=== PATIENT | female | born 1985 | race Caucasian/White ===

== ENCOUNTER 2021-03-27 02:55 | Emergency (ER) | payer SELFPAY ==
[2021-03-27 03:07] VITALS: BP 143/88; PULSE 140; RESP 22; TEMP 36.1; O2SAT 98; BMI 29.9
--- NOTE | 2021-03-27 03:10 | ED_ITS ---
HPI - Skin/Abscess/Foreign Bdy General: Chief complaint: Skin/Abscess/Foreign Body Stated complaint: spider bite to face Time Seen by Provider: 03/27/21 02:57 Source: patient Mode of arrival: ambulatory Limitations: no limitations History of Present Illness: HPI narrative: 35-year-old female states she has had an abscess to right side of her face over the last 2 days. States she initially thought was just a pimple tried pop and it is grown in size. Does have a abscess to the right side of her face with some cellulitis down to her chin. She has had some drainage from it states it is painful to touch has had low-grade fevers she rates her pain a 4 out of 10 denies any worsening improving factors. Associated symptoms: Deny chills, fever(s), nausea or vomiting Review of Systems Const: Denies: fever(s), chills, body aches or change in appetite Eyes: Denies: blurry vision or eye discomfort ENMT: Denies: throat pain or dental pain Card: Denies: chest pain Resp: Denies: dyspnea GI: Denies: abdominal pain, nausea, vomiting or diarrhea : Denies: dysuria Musc: Denies: neck pain or back pain Skin/Breast: Denies: rash Neuro: Denies: headache(s) Psych: Denies: depression [place]/Lymph: Denies: easy bruising All/Imm: Denies: urticaria PFSH ED PFSH: Medical History (Updated 03/27/21 @ 03:14 by Dangelo Christine MD) No pertinent family history Social History (Updated 03/27/21 @ 03:11 by Dangelo Christine MD) Substance/Drug Use: never Physical Exam Const: COMMON NORMALS: no acute distress and patient oriented x3 HENMT: OTHER: 2 cm abscess to right side of the face with cellulitis Eye: COMMON NORMALS: Equal, round and reactive pupils present PUPIL: Yes Equal, round and reactive pupils present Neck/C-Spine: COMMON NORMALS: full ROM Chest: COMMONS NORMALS: normal inspection of the chest Resp: COMMON NORMALS: normal respiratory effort Cardio: RATE: tachycardic GI: INSPECTION: Yes normal to inspection Neuro: COMMON NORMALS: patient oriented x3 Psych: COMMON NORMALS: mental status grossly normal Skin: COMMON NORMALS: no rashes or lesions noted GENERAL SKIN EXAM: no rashes or lesions noted Procedures Abscess I/D Site: face Side (if applicable): right Local Anesthetic: lidocaine 1% Amount of anesthesia used (mL): 5 Irrigation: No Packing used?: none Course Vital Signs: Vital signs: Vital Signs Temperature 96.9 F L 03/27/21 03:07 Pulse Rate 140 H 03/27/21 03:07 Respiratory Rate 22 H 03/27/21 03:07 Blood Pressure 143/88 03/27/21 03:07 Pulse Oximetry 98 03/27/21 03:07 MDM - Skin/Abscess/Foreign Bdy MDM Narrative: Medical decision making narrative: Patient presents with an abscess to the right side of her face abscess was incised and drained we will place her on Bactrim we will prescribe her pain medicine she is to follow-up with PCP and return if worsening she understands agrees plan. Discharge Plan Discharge Patient Disposition: Home Clinical Impression: Abscess Condition: Stable Prescriptions: New Bactrim DS 800-160 mg tablet 1 tab PO BID 10 Days Qty: 20 RF: 0 Naprosyn 500 mg tablet 500 mg PO BID PRN (Reason: pain) Qty: 20 RF: 0 Discharge Orders: Discharge ED (Routine); Ordered 03/27/21 Ordered By: Dangelo Christine Discharge Diet: Advance as tolerated Discharge Activity: Resume usual activity Patient Instructions: Abscess (ED) Coding Level of Care Code ED Military Technology Specialist for Maral Cintron
[2021-03-27] MEDS: HYDROcodone-acetaminophen 5-325 mg Tablet 1 TAB PO (03:18)
[2021-03-27] MEDS: sulfamethoxazole-trimeth DS 160-800 mg Tablet 1 TAB PO (03:18)
== END 2021-03-27 03:34 | disposition home or self-care (01) ==
PROVIDERS: Emergency Provider Emergency Medicine
DX: L02.01 Cutaneous abscess of face (principal)
CPT/HCPCS: 10060; 87070; 87077; 87186; 99283

== ENCOUNTER 2021-05-17 04:28 | Emergency (ER) | payer SELFPAY ==
[2021-05-17 04:37] VITALS: BP 140/97; PULSE 101; RESP 18; TEMP 36.4; O2SAT 100; BMI 29.3
--- NOTE | 2021-05-17 04:50 | XRR_ITS ---
PROCEDURE INFORMATION: Exam: XR Left Elbow Exam date and time: 05/17/2021 4:50 AM Age: 35 years old Clinical indication: Injury or trauma; Fall; Blunt trauma (contusions or hematomas); Elbow; Left; Additional info: Fall elbow pain TECHNIQUE: Imaging protocol: XR Left elbow. Views: 3 or more views. COMPARISON: No relevant prior studies available. FINDINGS: Bones/joints: No acute fracture or malalignment. Joint spaces are maintained. No joint effusion. Soft tissues: Normal. XR/XR elbow LT min 3V* [id number] IMPRESSION: No acute fracture or malalignment.
--- NOTE | 2021-05-17 05:34 | W.ED.FALL ---
HPI - Fall General: Chief Complaint: Fall Stated Complaint: left arm injury Time Seen by Provider: 05/17/21 04:50 History of Present Illness: 35-year-old female who slipped on the ice a day or so ago. She landed on her left lower arm/elbow. She complains of pain with some soft tissue swelling there. She denies hitting her head. She did not take any medication prior to coming. MD complaint: fall Onset (ago): hour(s) (28) Fall from: standing Place fall occurred: home Loss of consciousness: None Prolonged down time: no Context: tripped/slipped Location of injury - extremities: Left: elbow Associated symptoms-after fall: Denies headache(s) Review of Systems Const: Denies: fever(s) Skin/Breast: Denies: rash Neuro: Denies: headache(s) PFS ED PFSH: Medical History (Updated 05/17/21 @ 05:32 by Chin Castaneda DO) No pertinent family history Physical Exam Const: COMMON NORMALS: no acute distress GENERAL APPEARANCE: cooperative HENMT: COMMON NORMALS: normocephalic and atraumatic HEAD & SCALP: normocephalic and atraumatic Eye: COMMON NORMALS: Equal, round and reactive pupils present and EOMs intact bilaterally PUPIL: Yes Equal, round and reactive pupils present Resp: COMMON NORMALS: normal respiratory effort, No use of accessory muscles and clear to auscultation bilaterally AUSCULTATION: clear to auscultation bilaterally Cardio: COMMON NORMALS: regular rate and regular rhythm RATE: regular rate RHYTHM: regular rhythm Extremity: NARRATIVE EXTREMITY EXAM: Exam of the left elbow reveals tenderness along the joint line. There is no deformity. Motion is intact although quite painful. She lacks 10 degrees of extension sensation and capillary refill is normal distally. Neuro: SOCRATES COMA SCALE: document GCS findings Socrates coma scale eye opening: Spontaneous [place] coma scale verbal response: Orientated Socrates coma scale motor response: Obey commands [place] coma scale total score: 15 Course Vital Signs: Vital signs: Vital Signs Temperature 97.5 F L 05/17/21 04:37 Pulse Rate 101 H 05/17/21 04:37 Respiratory Rate 18 05/17/21 04:37 Blood Pressure 140/97 05/17/21 04:37 Pulse Oximetry 100 05/17/21 04:37 MDM - Fall Medical Decision Making X-rays negative. No joint effusion or sail sign. She will be allowed home with anti-inflammatory. Lab Data Radiology Impressions Elbow X-Ray 05/17/21 04:50 IMPRESSION: No acute fracture or malalignment. Discharge Plan Discharge Patient Disposition: Home Clinical Impression: Contusion of elbow, left Condition: Stable Prescriptions: New ketorolac 10 mg tablet 10 mg PO TID PRN (Reason: pain) Qty: 10 0RF Discontinued naproxen [Naprosyn] 500 mg tablet 500 mg PO BID PRN (Reason: pain) Qty: 20 0RF Discharge Orders: Discharge ED (Routine); Ordered 05/17/21 Ordered By: Chin Castaneda Discharge Diet: Usual diet Discharge Activity: Increase activity as tolerated Patient Instructions: Contusion in Adults (ED), Opioid Safety Activity Restrictions/Additional Instructions: Return for worsening swelling despite treatment, worsening pain despite treatment, any other concerning symptoms. Coding Level of Care Code ED Bias Cutting Machine Operator Vertical for Maral Cintron
[2021-05-17] MEDS: oxyCODONE-APAP 5-325 mg Tablet 2 TAB PO (05:57)
== END 2021-05-17 05:47 | disposition home or self-care (01) ==
PROVIDERS: Emergency Provider Emergency Medicine
DX: S50.02XA Contusion of left elbow, initial encounter (principal); W00.0XXA Fall on same level due to ice and snow, initial encounter
CPT/HCPCS: 73080; 99283

== ENCOUNTER 2022-08-15 23:00 | Emergency (ER) | payer SELFPAY ==
[2022-08-15 23:09] VITALS: BP 149/92; PULSE 104; RESP 14; TEMP 36.4; O2SAT 98; BMI 32.3
--- NOTE | 2022-08-15 23:18 | ED_ITS ---
HPI - Weakness General: Chief complaint: Weakness Stated complaint: unknown illness Time Seen by Provider: 08/15/22 23:18 History of Present Illness: 37-year-old female comes in today with general complaints of body stiffness, generalized body aches and pain, and worsening restless leg syndrome. Patient appears nontoxic. Patient admits to being a 1 to 2 pack a day smoker for the last 20 years. Patient appears in no pain at rest. Patient states over the last week she has had increased symptoms of generalized body aches, stiffness, and pain. Patient reports she had similar episode about 1 year ago that resolved on its own. Patient denies any routine medications or chronic use of [id number] medications. Patient does not use any supplements. Patient denies alcohol or drug use. Associated symptoms: Denies chest pain, fever(s), headache(s), nausea or vomiting Review of Systems General: Reports: 10 or more systems reviewed and unremarkable except in HPI and below Const: Reports: body aches and fatigue; Denies: fever(s) Eyes: Denies: change in vision ENMT: Denies: throat pain Card: Denies: chest pain Resp: Reports: other (Becomes out of breath with activity); Denies: dyspnea GI: Denies: nausea, vomiting, diarrhea or constipation : Denies: difficulty voiding Musc: Reports: joint pain and joint stiffness; Denies: joint swelling Skin/Breast: Denies: rash Neuro: Denies: headache(s) Psych: Denies: depression PFS ED PFSH: Medical History (Updated 08/16/22 @ 00:47 by SWETA Canchola) No pertinent family history Social History (Updated 03/27/21 @ 03:11 by Dangelo Christine MD) Substance/Drug Use: never Physical Exam Const: COMMON NORMALS: alert HENMT: COMMON NORMALS: normocephalic HEAD & SCALP: normocephalic MOUTH: Normal oral and palatal mucosa present Neck/C-Spine: COMMON NORMALS: full ROM Resp: COMMON NORMALS: normal respiratory effort and clear to auscultation bilaterally AUSCULTATION: clear to auscultation bilaterally Cardio: COMMON NORMALS: regular rate and regular rhythm RATE: regular rate RHYTHM: regular rhythm GI: COMMON NORMALS: non-tender : COMMON NORMALS: Yes no CVA tenderness BLADDER/KIDNEY EXAM: Yes no CVA tenderness Back/Pelvis: COMMON NORMALS: no CVA tenderness and thoracic and lumbar spine normal to inspection Extremity: COMMON NORMALS: no pedal edema Neuro: SENSORIUM/ORIENTATION: Yes alert Skin: COMMON NORMALS: turgor normal GENERAL SKIN EXAM: turgor normal Course Vital Signs: Vital signs: Vital Signs Temperature 97.6 F 08/15/22 23:09 Pulse Rate 88 08/16/22 00:52 Respiratory Rate 16 08/16/22 00:52 Blood Pressure 149/92 08/15/22 23:09 Pulse Oximetry 97 08/16/22 00:52 Oxygen Delivery Me thod Room Air 08/15/22 23:09 MDM - Weakness Medical Decision Making Patient comes in for generalized body aches and restless legs. On exam lungs are clear to auscultation. Heart rates regular. Vital signs are normal. Differential diagnosis includes but not limited to rheumatic arthritis, restless leg syndrome, lupus, anxiety about health, osteoarthritis, major depressive disorder. Laboratory values were unremarkable. CRP was slightly elevated at 17.4, WBCs were 10,000, platelet count was 405. Urinalysis was normal. At this time I cannot make a definitive decision for patient's complaints of malaise and body aches and joint tightness. It may be something autoimmune such as fibromya lgia or rheumatoid arthritis. I recommended patient follow-up with primary care for further laboratory values and testing. No severe illness was noted at this time. Recommend fluids and rest healthy diet and smoking cessation. Patient reported understanding and agreed to plan. Lab Data 08/15/22 23:49 08/15/22 23:49 Laboratory Results WBC 10.3 10^3/uL (4.0-10.0) H 08/15/22 23:49 RBC 4.39 10^6/uL (4.1-5.3) 08/15/22 23:49 Hgb 13.4 g/dL (11.5-15.3) 08/15/22 23:49 Hct 39.1 % (37.0-47.0) 08/15/22 23:49 MCV 89.1 fl (81-99) 08/15/22 23:49 MCH 30.5 pg (28.0-34.0) 08/15/22 23:49 MCHC 34.3 g/dL (30.0-36.0) 08/15/22 23:49 RDW 11.8 % (12.1-15.1) L 08/15/22 23:49 Plt Count 405 10^3/cmm (130-400) H 08/15/22 23:49 MPV 9.1 fL (7.4-10.4) 08/15/22 23:49 Neut % (Auto) 48.8 % 08/15/22 23:49 Lymph % (Auto) 40.5 % 08/15/22 23:49 [place] % (Auto) 7.7 % 08/15/22 23:49 Eos % (Auto) 2.3 % 08/15/22 23:49 Baso % (Auto) 0.4 % 08/15/22 23:49 Neut # (Auto) 5.04 10^3/uL (1.8-7.7) 08/15/22 23:49 Lymph # (Auto) 4.2 10^3/uL (0.8-4.8) 08/15/22 23:49 [place] # (Auto) 0.8 10^3/uL (0.2-0.9) 08/15/22 23:49 Eos # (Auto) 0.2 10^3/uL (0.0-0.8) 08/15/22 23:49 Baso # (Auto) 0.0 10^3/uL (0.0-0.1) 08/15/22 23:49 Nucleated RBC % (auto) 0 % 08/15/22 23:49 Nucleated RBCs # 0.0 /100WBC 08/15/22 23:49 ESR 11 mm/hr (0-15) 08/15/22 23:49 Sodium 136 mmol/L (136-145) 08/15/22 23:49 Potassium 4.2 mmol/L (3.5-5.1) 08/15/22 23:49 Chloride 102 mmol/L (98-107) 08/15/22 23:49 Carbon Dioxide 25 mmol/L (22-29) 08/15/22 23:49 Anion Gap 13.2 (5-19) 08/15/22 23:49 BUN 13 mg/dL (6-20) 08/15/22 23:49 Creatinine 0.6 mg/dL (0.5-0.9) 08/15/22 23:49 GFR Calculation 113.1 mL/min (90-130) 08/15/22 23:49 Glucose 112 mg/dL (65-115) 08/15/22 23:49 Calculated Osmolality 283 mOsm/kg (285-295) L 08/15/22 23:49 Calcium 9.0 mg/dL (8.5-10.5) 08/15/22 23:49 Total Bilirubin 0.4 mg/dL (0.15-1.2) 08/15/22 23:49 AST 56 U/L (0-32) H 08/15/22 23:49 ALT 91 U/L (0-33) H 08/15/22 23:49 Alkaline Phosphatase 77 U/L (35-105) 08/15/22 23:49 C-Reactive Protein 17.4 mg/L (0.0-4.9) H 08/15/22 23:49 Total Protein 7.5 g/dL (6.6-8.7) 08/15/22 23:49 Albumin 4.1 g/dL (3.5-5.2) 08/15/22 23:49 Globulin 3.4 g/dL (1.3-4.6) 08/15/22 23:49 Lipase 27 U/L (13-60) 08/15/22 23:49 TSH 1.09 uIU/mL (0.27-4.20) 08/15/22 23:49 HCG, Qual Negative (Negative) 08/15/22 23:49 Urine Color Colorless (Yellow) 08/16/22 00:05 Urine Appearance Clear (CLEAR) 08/16/22 00:05 Urine pH 7 (5-7) 08/16/22 00:05 Ur Specific [place] 1.010 (1.005-1.030) 08/16/22 00:05 Urine Protein Neg (Negative) 08/16/22 00:05 Urine Glucose (UA) Norm (Normal) 08/16/22 00:05 Urine Ketones Negative (Negative) 08/16/22 00:05 Urine Blood Neg (Negative) 08/16/22 00:05 Urine Nitrate Negative (Negative) 08/16/22 00:05 Urine Bilirubin Neg (Negative) 08/16/22 00:05 Urine Urobilinogen Norm mg/dL (Negative) 08/16/22 00:05 Ur Leukocyte Esterase Negative (Negative) 08/16/22 00:05 Discharge Plan Discharge Patient Disposition: Home Clinical Impression: Malaise and fatigue, Restless leg syndrome Condition: Stable Prescriptions: No Action ketorolac 10 mg tablet 10 mg PO TID PRN (Reason: pain) Qty: 10 0RF Discharge Orders: Discharge ED (Routine); Ordered 08/16/22 Ordered By: Oliver Elizabeth Discharge Diet: Usual diet Discharge Activity: Increase activity as tolerated Patient Instructions: Restless Legs Syndrome (ED) Activity Restrictions/Additional Instructions: Home and rest. Drink plenty of water and fluids. Eat a healthy diet. Try to stop smoking. Follow-up with primary care for assistance with restless leg syndrome at bedtime. You may need to have further evaluation for autoimmune disorders such as rheumatoid arthritis, lupus, and fibromyalgia. Return to the ER for new concerns. Stand Alone Forms: Work/School Release Coding Level of Care Code ED University Relations Director for Maral Cintron
[2022-08-15 23:55] LABS: Erythrocyte Sedimentation Rate 11 mm/hr (0-15)
[2022-08-15 23:56] LABS: Basophils % 0.4 %; Eosinophils # 0.2 10^3/uL (0.0-0.8); Eosinophils % 2.3 %; Hematocrit 39.1 % (37.0-47.0); Hemoglobin 13.4 g/dL (11.5-15.3); Lymphocytes # 4.2 10^3/uL (0.8-4.8); Lymphocytes % 40.5 %; Mean Corpuscular HGB Conc 34.3 g/dL (30.0-36.0); Mean Corpuscular Hemoglobin 30.5 pg (28.0-34.0); Mean Corpuscular Volume 89.1 fl (81-99); Mean Platelet Volume 9.1 fL (7.4-10.4); Monocytes # 0.8 10^3/uL (0.2-0.9); Monocytes % 7.7 %; Neutrophils # 5.04 10^3/uL (1.8-7.7); Neutrophils % 48.8 %; Nucleated Red Blood Cells % 0 %; Platelet Count 405 10^3/cmm (130-400); Red Blood Count 4.39 10^6/uL (4.1-5.3); Red Cell Distribution Width 11.8 % (12.1-15.1); White Blood Count 10.3 10^3/uL (4.0-10.0)
[2022-08-16 00:07] LABS: HCG, Serum Qual Negative (Negative)
[2022-08-16 00:18] LABS: Add Urine Microscopic? NO; Charge for UA Resulting for Rev
[2022-08-16 00:21] LABS: Urine Appearance Clear (CLEAR); Urine Color Colorless (Yellow); pH Urine 7 (5-7)
[2022-08-16 00:22] LABS: Bilirubin Urine Neg (Negative); Blood Urine Neg (Negative); Glucose Urine UA Norm (Normal); Ketones Urine Negative (Negative); Leukocyte Esterase Urine Negative (Negative); Nitrate Urine Negative (Negative); Protein Urine Neg (Negative); Urobilinogen Urine Norm (Negative)
[2022-08-16 00:25] LABS: Alanine Aminotransferase 91 U/L (0-33); Albumin Level 4.1 g/dL (3.5-5.2); Alkaline Phosphatase 77 U/L (35-105); Anion Gap 13.2 (5-19); Aspartate Amino Transferase 56 U/L (0-32); Blood Urea Nitrogen 13 mg/dL (6-20); C Reactive Protein 17.4 mg/L (0.0-4.9); Carbon Dioxide 25 mmol/L (22-29); Chloride 102 mmol/L (98-107); Globulin 3.4 g/dL (1.3-4.6); Glomerular Filtration Rate 113.1 mL/min (90-130); Glucose 112 mg/dL (65-115); Lipase 27 U/L (13-60); Osmolality Calculated 283 mOsm/kg (285-295); Potassium 4.2 mmol/L (3.5-5.1); Sodium 136 mmol/L (136-145); Thyroid Stimulating Hormone 1.09 uIU/mL (0.27-4.20); Total Bilirubin 0.4 mg/dL (0.15-1.2); Total Protein 7.5 g/dL (6.6-8.7)
[2022-08-16 00:52] VITALS: PULSE 88; RESP 16; O2SAT 97
--- NOTE | 2022-08-19 13:15 | DCPLANNER ---
pmo manager called patient due to no primary care physician - number is wrong number - [phone].
== END 2022-08-16 00:50 | disposition home or self-care (01) ==
PROVIDERS: Emergency Provider Nurse Practitioner Family
DX: R53.81 Other malaise (principal); R53.83 Other fatigue; G25.81 Restless legs syndrome
CPT/HCPCS: 36415; 80053; 81003; 83690; 84443; 84703; 85025; 85651; 86140; 99283

== ENCOUNTER 2022-10-27 03:06 | Emergency (ER) | payer SELFPAY ==
[2022-10-27 03:14] VITALS: BP 141/78; PULSE 113; RESP 18; TEMP 36.6; O2SAT 98; BMI 38.3
--- NOTE | 2022-10-27 03:18 | XRR_ITS ---
PROCEDURE INFORMATION: Exam: XR Chest Exam date and time: 10/27/2022 3:34 AM Age: 37 years old Clinical indication: Cough TECHNIQUE: Imaging protocol: Radiologic exam of the chest. Views: 1 view. COMPARISON: No relevant prior studies available. FINDINGS: Lungs: Lungs are hyperinflated. Clear parenchyma. Pleural spaces: No pleural effusion. No pneumothorax. Heart/Mediastinum: Cardiac silhouette is normal in size for technique. Bones/joints: Age appropriate. XR/XR chest 1V portable [id number] IMPRESSION: Hyperinflated but clear lungs. No other acute cardiopulmonary abnormality.
--- NOTE | 2022-10-27 03:19 | W.ED.GENADLT ---
HPI - General Adult General: Chief complaint: General Medical Stated complaint: coughing, sore throat Time Seen by Provider: 10/27/22 03:15 Source: patient Mode of arrival: ambulatory Limitations: no limitations History of Present Illness: 37-year-old female states that she was cleaning with bleach tonight and fell like she had inhaled a bunch of bleach and since has been having sore scratchy throat along with cough. She states her pain is a 6 out of 10 she denies any fever she is denying any chest pain denies any vomiting or diarrhea denies any worsening proving factors Associated symptoms: Deny chest pain, dyspnea, headache(s), nausea, rash or vomiting Review of Systems Const: Denies: fever(s), chills, body aches or change in appetite Eyes: Denies: eye discomfort ENMT: Reports: throat pain; Denies: dental pain Card: Denies: chest pain Resp: Reports: non-productive cough; Denies: dyspnea GI: Denies: abdominal pain, nausea, vomiting or diarrhea : Denies: dysuria Musc: Denies: neck pain or back pain Skin/Breast: Denies: rash Neuro: Denies: headache(s) PFSH ED PFSH: Medical History No pertinent family history Social History Substance/Drug Use: never Female Reproductive History: Date of last menstrual period: 10/26/22 Physical Exam Const: COMMON NORMALS: no acute distress, patient oriented x3 and healthy appearing HENMT: COMMON NORMALS: normocephalic and atraumatic HEAD & SCALP: normocephalic and atraumatic OTHER: Slight pharyngeal erythema no exudates no uvular deviation Neck/C-Spine: COMMON NORMALS: full ROM and supple Chest: COMMONS NORMALS: normal inspection of the chest and normal palpation of entire chest wall Resp: COMMON NORMALS: normal respiratory effort, No retractions, No use of accessory muscles and clear to auscultation bilaterally AUSCULTATION: clear to auscultation bilaterally Cardio: COMMON NORMALS: regular rate, regular rhythm and No murmurs present (Cardio) RATE: regular rate RHYTHM: regular rhythm GI: COMMON NORMALS: Normal to inspection, nondistended, normoactive bowel sounds present, Soft to palpation, non-tender and no masses PALPATION: Yes Soft to palpation Extremity: COMMON NORMALS: normal to inspection and full ROM Neuro: COMMON NORMALS: patient oriented x3, moves all extremities and no focal motor deficits Psych: COMMON NORMALS: mental status grossly normal, Normal thought process present and cooperative THOUGHT PROCESS: Normal thought process present Skin: COMMON NORMALS: no rashes or lesions noted and no wounds GENERAL SKIN EXAM: no rashes or lesions noted Course Vital Signs: Vital signs: Vital Signs Temperature 97.9 F 10/27/22 03:14 Pulse Rate 88 10/27/22 03:40 Respiratory Rate 18 10/27/22 03:40 Blood Pressure 141/78 10/27/22 03:32 Pulse Oximetry 99 10/27/22 03:40 Oxygen Delivery Me thod Room Air 10/27/22 03:40 MDM - General Adult Medical Decision Making Patient presents for sore throat that is likely reactive from bleach exposure eye exam here is benign no signs of infectious process or abscess strep and COVID are negative she is stable for discharge she is to follow-up with her PCP and return if worsening. Medical Records I reviewed the patient's medical records. Lab Data I reviewed the patient's lab results. Radiology Impressions Chest X-Ray 10/27/22 03:18 IMPRESSION: Hyperinflated but clear lungs. No other acute cardiopulmonary abnormality. Laboratory Results SARS-CoV-2 Ag (Rapid) Negative (Negative) 10/27/22 03:31 Group A Strep Rapid Negative (Negative) 10/27/22 03:18 Discharge Plan Discharge Patient Disposition: Home Clinical Impression: Sore throat Condition: Stable Prescriptions: No Action ketorolac 10 mg tablet 10 mg PO TID PRN (Reason: pain) Qty: 10 0RF Discharge Orders: Discharge ED (Routine); Ordered 10/27/22 Ordered By: Dangelo Christine Discharge Diet: Advance as tolerated Discharge Activity: Resume usual activity Patient Instructions: Strep Throat (ED) Coding Level of Care Code ED Rotary Cutter Feeder for Maral Cintron
[2022-10-27] MEDS: dexamethasone 10 mg/mL INJ IM (03:23)
[2022-10-27] MEDS: ketorolac 60 mg/2 mL INJ IM (03:23)
[2022-10-27 03:32] VITALS: BP 141/78; PULSE 95; RESP 17; O2SAT 97
[2022-10-27 03:37] VITALS: PULSE 100; RESP 18; O2SAT 99
[2022-10-27] MEDS: albuterol 2.5 mg/3 mL Neb INHALATION (03:37)
[2022-10-27 03:38] LABS: Rapid Strep A Test Negative (Negative)
[2022-10-27 03:40] VITALS: PULSE 88; RESP 18; O2SAT 99
[2022-10-27 04:03] LABS: SARS Covid-2 Antigen Negative (Negative)
[2022-10-27 04:10] VITALS: BP 141/78; PULSE 77; RESP 17; O2SAT 94
== END 2022-10-27 04:11 | disposition home or self-care (01) ==
PROVIDERS: Emergency Provider Emergency Medicine
DX: J02.9 Acute pharyngitis, unspecified (principal); Z20.822 Contact with and (suspected) exposure to COVID-19
CPT/HCPCS: 71045; 87081; 87426; 87880; 94640; 96372; 99284; J1100; J1885; J7613

== ENCOUNTER → 2022-10-29 13:36 | Outpatient (BNVA) | payer SELFPAY | PROVIDERS: Visit Provider Family Medicine Adult Medicine | DX: F41.8 Other specified anxiety disorders (principal); R52 Pain, unspecified; M25.541 Pain in joints of right hand; M25.542 Pain in joints of left hand; Z84.0 Family history of diseases of the skin and subcutaneous tissue; R63.5 Abnormal weight gain; E66.9 Obesity, unspecified; F17.200 Nicotine dependence, unspecified, uncomplicated; J02.9 Acute pharyngitis, unspecified | CPT/HCPCS: 80053; 84443; 85025; 85651; 86160; 86162; 86235; 86255; 86376; 86431 ==

== ENCOUNTER 2022-12-22 14:11 | Emergency (ER) | payer SELFPAY ==
[2022-12-22 14:33] VITALS: BP 131/95; PULSE 93; RESP 16; TEMP 36.8; O2SAT 97
--- NOTE | 2022-12-22 14:44 | W.ED.SKABFB ---
HPI - Skin/Abscess/Foreign Bdy General: Chief complaint: Skin/Abscess/Foreign Body Stated complaint: small bump under right arm Time Seen by Provider: 12/22/22 14:38 Source: patient Mode of arrival: ambulatory Limitations: no limitations History of Present Illness: Patient is a 37-year-old female presents to ED today with a complaint of an abscess to her right axillary region that she began noticing about 3 days ago. She states area is painful. She denies drainage. Denies history of previous abscesses or MRSA. MD complaint: abscess/boil Onset (ago): day(s) Tetanus up to date: yes Location: RUE (axilla) Severity: moderate Pain Consistency: constant Relieving factors: none Exacerbating factors: none Context: none Associated symptoms: Reports no associated symptoms; Deny chills or fever(s) Treatments prior to arrival: none Review of Systems Const: Denies: fever(s), chills, body aches, fatigue or malaise Skin/Breast: Reports: other (abscess R axilla) PFSH ED PFSH: Medical History FH: lupus erythematosus Joint pain in both hands Mixed anxiety depressive disorder Obesity (BMI 30-39.9) Smoker unmotivated to quit Weight gain, abnormal Whole body pain Surgical History No pertinent past surgical history Family History Father No problems noted. Mother Hypertension Hyperlipidemia Social History Smoking and tobacco/nicotine status: current every day tobacco/nicotine user Quit status (tobacco/nicotine): not considering quitting Second hand smoke exposure: No Alcohol intake: former Substance/Drug Use: current Substance/Drug use frequency: daily Physical Exam Const: COMMON NORMALS: no acute distress, patient oriented x3, no limitations, alert and well nourished Extremity: COMMON NORMALS: full ROM, capillary refill normal, no joint enlargement and no clubbing, cyanosis or edema NARRATIVE EXTREMITY EXAM: see skin below GENERAL: Yes normal exam except as noted Neuro: COMMON NORMALS: patient oriented x3, moves all extremities, no focal motor deficits and no sensory deficits noted SENSORIUM/ORIENTATION: Yes alert Skin: NARRATIVE SKIN EXAM: small 2cm fluctuate abscess R axilla without surrounding erythema or drainage; I&D performed and culture obtained Procedures Abscess I/D Site: other (R axilla) Side (if applicable): right Local Anesthetic: lidocaine 2% Amount of anesthesia used (mL): 2.5 Technique: incised with #11 blade Amount of fluid expressed (mL): 2.0 Irrigation: Yes Packing used?: plain Course Vital Signs: Vital signs: Vital Signs Temperature 98.3 F 12/22/22 14:33 Pulse Rate 93 12/22/22 14:33 Respiratory Rate 16 12/22/22 14:33 Blood Pressure 131/95 12/22/22 14:33 Pulse Oximetry 97 12/22/22 14:33 Oxygen Delivery Me thod Room Air 12/22/22 14:33 MDM - Skin/Abscess/Foreign Bdy Medicial Decision Making Abscess was incised, drained, and packed. Culture obtained. She will be placed on Bactrim. Recommend she remove packing in 72 hours. Return to ED precautions given. No radiology studies performed this visit Discharge Plan Discharge Patient Disposition: Home Clinical Impression: Abscess of right axilla Condition: Stable Prescriptions: New Bactrim DS 800-160 mg tablet 1 tab PO BID 7 Days Qty: 14 0RF No Action buspirone 5 mg tablet 5 mg PO TID PRN (Reason: anxiety) Qty: 90 1RF citalopram [Celexa] 10 mg tablet 10 mg PO DAILY Qty: 30 1RF Discharge Orders: Discharge ED (Routine); Ordered 12/22/22 Ordered By: Ashlie Arana Patient Instructions: Abscess (ED), Abscess Incision and Drainage (DC) Activity Restrictions/Additional Instructions: Please monitor your abscess for worsening symptoms such as worsening redness, swelling, increased drainage, red streaking, or fevers. If you have been on antibiotics for over 48 hours and continue to worsen you need to immediately return to the emergency department for re-evaluation. If your abscess was incised and drained and packing was placed, you should have received instructions on when to remove packing-72 hours. Coding Level of Care Code ED Partition Assembly Machine Operator for Maral Cintron
== END 2022-12-22 15:21 | disposition home or self-care (01) ==
PROVIDERS: Emergency Provider Physician Assistant
DX: L02.411 Cutaneous abscess of right axilla (principal); F17.210 Nicotine dependence, cigarettes, uncomplicated
CPT/HCPCS: 10060; 87070; 87075; 87077; 87186; 87205; 99283

== ENCOUNTER 2022-12-28 17:35 | Emergency (ER) | payer SELFPAY ==
[2022-12-28 17:41] VITALS: BP 142/89; PULSE 96; RESP 18; TEMP 36.8; O2SAT 96; BMI 32.3
--- NOTE | 2022-12-28 17:56 | W.ED.WOUNDLC ---
HPI - Wound/Laceration General: Chief Complaint: Wound/Laceration Stated Complaint: spot RT armpit Time Seen by Provider: 12/28/22 17:49 Source: patient Mode of arrival: ambulatory Limitations: no limitations History of Present Illness: 37-year-old female who had a abscess in her right axilla incised and drained earlier this week she had a packing placed she states it fell out but she is concerned that part of that may not fell out she is unsure. She states she had some slight pain some slight redness she denies any fever denies any worsening relieving factors she has been on Bactrim. Associated symptoms: Denies chills, fever(s), nausea or vomiting Review of Systems Const: Denies: fever(s), chills, body aches or change in appetite ENMT: Denies: throat pain or dental pain Card: Denies: chest pain Resp: Denies: dyspnea GI: Denies: abdominal pain, nausea, vomiting or diarrhea Musc: Denies: neck pain or back pain Skin/Breast: Reports: erythema; Denies: rash Neuro: Denies: headache(s) PFSH ED PFSH: Medical History FH: lupus erythematosus Joint pain in both hands Mixed anxiety depressive disorder Obesity (BMI 30-39.9) Smoker unmotivated to quit Weight gain, abnormal Whole body pain Surgical History No pertinent past surgical history Family History Father No problems noted. Mother Hypertension Hyperlipidemia Social History Smoking and tobacco/nicotine status: current every day tobacco/nicotine user Quit status (tobacco/nicotine): not considering quitting Second hand smoke exposure: No Alcohol intake: former Substance/Drug Use: current Substance/Drug use frequency: daily Physical Exam Const: COMMON NORMALS: no acute distress, patient oriented x3 and healthy appearing HENMT: COMMON NORMALS: normocephalic HEAD & SCALP: normocephalic Neck/C-Spine: COMMON NORMALS: full ROM and supple Chest: COMMONS NORMALS: normal inspection of the chest Resp: COMMON NORMALS: normal respiratory effort Cardio: COMMON NORMALS: regular rate RATE: regular rate Extremity: COMMON NORMALS: full ROM NARRATIVE EXTREMITY EXAM: Slight area of erythema under right armpit still has opening no signs of any packing left no drainage at this time Neuro: COMMON NORMALS: patient oriented x3, moves all extremities and no focal motor deficits Psych: COMMON NORMALS: mental status grossly normal, Normal thought process present and cooperative THOUGHT PROCESS: Normal thought process present Skin: COMMON NORMALS: no rashes or lesions noted and no wounds GENERAL SKIN EXAM: no rashes or lesions noted Course Vital Signs: Vital signs: Vital Signs Temperature 98.2 F 12/28/22 17:41 Pulse Rate 96 12/28/22 17:41 Respiratory Rate 18 12/28/22 17:41 Blood Pressure 142/89 12/28/22 17:41 Pulse Oximetry 96 12/28/22 17:41 Oxygen Delivery Me thod Room Air 12/28/22 17:41 MDM - Wound/Laceration Medical Decision Making Patient presents here for recheck abscess underneath her right armpit looks improved she has no drainage at this time does not need the abscess reopen no signs of foreign body no signs of packing still in the wound we will start her on clinda for short course she is to follow-up with PCP and return if worsening Medical Records I reviewed the patient's medical records. No radiology studies performed this visit Discharge Plan Discharge Patient Disposition: Home Clinical Impression: Abscess of right axilla Condition: Stable Prescriptions: New clindamycin HCl 300 mg capsule 300 mg PO Q8H 7 Days Qty: 21 0RF No Action buspirone 5 mg tablet 5 mg PO TID PRN (Reason: anxiety) Qty: 90 1RF citalopram [Celexa] 10 mg tablet 10 mg PO DAILY Qty: 30 1RF Bactrim DS 800-160 mg tablet 1 tab PO BID 7 Days Qty: 14 0RF Discharge Orders: Discharge ED (Routine); Ordered 12/28/22 Ordered By: Dangelo Christine Discharge Diet: Advance as tolerated Discharge Activity: Resume usual activity Patient Instructions: Abscess (ED) 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
[2022-12-28] MEDS: HYDROcodone-acetaminophen 5-325 mg Tablet 1 TAB PO (18:11)
== END 2022-12-28 18:12 | disposition home or self-care (01) ==
PROVIDERS: Emergency Provider Emergency Medicine
DX: L02.411 Cutaneous abscess of right axilla (principal); F17.210 Nicotine dependence, cigarettes, uncomplicated
CPT/HCPCS: 99283

== ENCOUNTER 2023-01-02 22:01 | Emergency (ER) | payer SELFPAY ==
[2023-01-02 22:10] VITALS: BP 126/75; PULSE 118; RESP 18; TEMP 36.7; O2SAT 98; BMI 32.3
--- NOTE | 2023-01-02 22:14 | W.ED.URI ---
HPI - URI/Sore Throat General: Chief Complaint: Upper Respiratory Infection Stated Complaint: flu like symptoms Time Seen by Provider: 01/02/23 22:13 History of Present Illness: 37-year-old female comes in today with complaints of cough and body aches. Patient appears nontoxic. Patient has frequent harsh cough. Patient is a cigarette smoker. Patient recently been on antibiotic for a axillary abscess. Patient reports that her son has been ill with upper respiratory infection. Patient does have a history of bronchitis. Review of Systems General: Reports: 10 or more systems reviewed and unremarkable except in HPI and below Resp: Reports: non-productive cough PFSH ED PFSH: Medical History FH: lupus erythematosus Joint pain in both hands Mixed anxiety depressive disorder Obesity (BMI 30-39.9) Smoker unmotivated to quit Weight gain, abnormal Whole body pain Surgical History No pertinent past surgical history Family History Father No problems noted. Mother Hypertension Hyperlipidemia Social History Smoking and tobacco/nicotine status: current every day tobacco/nicotine user Quit status (tobacco/nicotine): not considering quitting Second hand smoke exposure: No Alcohol intake: former Substance/Drug Use: current Substance/Drug use frequency: daily Female Reproductive History: Date of last menstrual period: 12/07/22 Physical Exam Const: COMMON NORMALS: alert HENMT: COMMON NORMALS: normocephalic HEAD & SCALP: normocephalic Neck/C-Spine: COMMON NORMALS: full ROM Resp: COMMON NORMALS: normal respiratory effort AUSCULTATION: wheezes Cardio: COMMON NORMALS: regular rate RATE: regular rate Back/Pelvis: COMMON NORMALS: thoracic and lumbar spine normal to inspection Extremity: COMMON NORMALS: full ROM Neuro: SENSORIUM/ORIENTATION: Yes alert Skin: COMMON NORMALS: turgor normal GENERAL SKIN EXAM: turgor normal Course Vital Signs: Vital signs: Vital Signs Temperature 98.1 F 01/02/23 22:10 Pulse Rate 109 H 01/02/23 22:31 Respiratory Rate 18 10/29/23 22:25 Blood Pressure 126/75 10/29/23 22:10 Pulse Oximetry 99 01/02/23 22:25 Oxygen Delivery Me thod Room Air 01/02/23 22:25 MDM - URI/Sore Throat Medical Decision Making 37-year-old female comes in today for complaints of persistent cough. Patient has been ill since yesterday. On exam patient is nontoxic in appearance. Patient has decreased breath sounds with wheezing throughout. Vital signs are normal. Differential diagnosis includes acute bronchitis, exacerbation of asthma, pneumonia. No signs of pneumonia is noted at this time. Suspect patient has acute bronchitis secondary to cigarette smoking. Encourage patient to stop smoking. Patient was given a dose of steroid to help with cough and congestion. Patient be started on albuterol inhaler for shortness of breath and wheezing. Patient has a prescription for antibiotics and will continue them. Patient will be placed on prednisone 20 mg daily for the next 7 days. Patient was given 10 mg of dexamethasone in the ER to start. No radiology studies performed this visit Discharge Plan Discharge Patient Disposition: Home Clinical Impression: Bronchitis Condition: Stable Prescriptions: New prednisone 20 mg tablet 20 mg PO DAILY 7 Days Qty: 7 0RF No Action clindamycin HCl 300 mg capsule 300 mg PO Q8H 7 Days Qty: 21 0RF buspirone 5 mg tablet 5 mg PO TID PRN (Reason: anxiety) Qty: 90 1RF citalopram [Celexa] 10 mg tablet 10 mg PO DAILY Qty: 30 1RF Discharge Orders: Discharge ED (Routine); Ordered 01/02/23 Ordered By: Oliver Elizabeth Referrals: Felipe Ching MD [Primary Care Provider] - Discharge Diet: Usual diet Discharge Activity: Increase activity as tolerated Patient Instructions: Acute Bronchitis (ED) Activity Restrictions/Additional Instructions: Fill prednisone prescription take 20 mg daily for the next 7 days to help with cough and chest congestion. Drink plenty of water with medication. Fill clindamycin and take as prescribed for antibiotic coverage as needed. Most often bronchitis does not require antibiotics for cure. Use albuterol inhaler 2 puffs every 4 hours as needed for cough or shortness of breath. Follow-up with primary care for further instructions. Return to ED for new concerns. 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
[2023-01-02] MEDS: dexamethasone 10 mg/mL INJ IM (22:21)
[2023-01-02 22:25] VITALS: PULSE 114; RESP 18; O2SAT 99
[2023-01-02] MEDS: ipratropium-albuterol 3 mL Neb INHALATION (22:30)
[2023-01-02] MEDS: albuterol 8 gm MDI 2 PUFF INHALATION (22:30)
[2023-01-02 22:31] VITALS: PULSE 109
== END 2023-01-02 22:48 | disposition home or self-care (01) ==
PROVIDERS: Emergency Provider Nurse Practitioner Family; PCP Family Medicine Adult Medicine
DX: J40 Bronchitis, not specified as acute or chronic (principal); Z72.0 Tobacco use
CPT/HCPCS: 94640; 96372; 99284; J1100; J3535

== ENCOUNTER 2023-11-20 03:52 | Emergency (ER) | payer SELFPAY ==
[2023-11-20 04:04] VITALS: BP 163/92; PULSE 112; RESP 20; TEMP 36.6; O2SAT 98
--- NOTE | 2023-11-20 06:28 | ED_ITS ---
HPI - Dental/Oral General: Chief complaint: Dental/Oral Stated complaint: Tooth Ache Time Seen by Provider: 11/20/23 06:04 History of Present Illness: This patient is a 38-year-old presenting with pain in her left lower jaw. She reports that she has several bad teeth and has a molar that is broken and loose. She plans to see a dentist but knows that they will want her to be on antibiotics before she can get it pulled. She denies fevers. She does not feel ill. She has no significant swelling around the area and denies difficulty swallowing or breathing. Related Data Previous Rx's Medication Instructions Recorded buspirone 5 mg tablet 5 mg PO TID PRN anxiety #90 tabs 12/29/22 citalopram 10 mg tablet (Celexa) 10 mg PO DAILY mental health #30 12/29/22 tabs penicillin V potassium 500 mg 500 mg PO Q8H 10 days #30 tabs 11/20/23 tablet Allergies Allergy/AdvReac Type Severity Reaction Status Date / Time No Known Allergies Allergy Verified 01/02/23 22:12 [facility] ED PFSH: Medical History (Updated 11/20/23 @ 06:29 by Janice Lino MD) Lip tremor Abscess of right axilla FH: lupus erythematosus Smoker unmotivated to quit Whole body pain Joint pain in both hands Obesity (BMI 30-39.9) Weight gain, abnormal Mixed anxiety depressive disorder Surgical History No pertinent past surgical history Family History Father No problems noted. Mother Hypertension Hyperlipidemia Social History Smoking and tobacco/nicotine status: current every day tobacco/nicotine user Quit status (tobacco/nicotine): not considering quitting Second hand smoke exposure: No Alcohol intake: former Substance/Drug Use: current Substance/Drug use frequency: daily Physical Exam Const: COMMON NORMALS: no acute distress, patient oriented x3, no limitations and alert GENERAL APPEARANCE: cooperative and comfortable HENMT: HEAD & SCALP: normal to inspection FACE & SINUS: normal facial exam MOUTH: Normal oral and palatal mucosa present and tongue normal TEETH & GINGIVA: Yes abnormal tooth and associated gingiva, Yes caries, Yes poor dentition and Yes other (The most posterior molar on the left mandible is eroded to the gumline. Di) Eye: GENERAL EYE: appearance normal, both eyes and all related structures Neck/C-Spine: COMMON NORMALS: supple, no meningeal signs and no JVD Resp: COMMON NORMALS: normal respiratory effort, No use of accessory muscles and clear to auscultation bilaterally AUSCULTATION: clear to auscultation bilaterally Cardio: COMMON NORMALS: no JVD, regular rate, regular rhythm and No murmurs present (Cardio) RATE: regular rate RHYTHM: regular rhythm Extremity: COMMON NORMALS: normal to inspection Neuro: COMMON NORMALS: patient oriented x3, moves all extremities, no focal motor deficits and no sensory deficits noted SENSORIUM/ORIENTATION: Yes alert MENINGEAL SIGNS: Yes no meningeal signs Psych: COMMON NORMALS: mental status grossly normal, cooperative and normal affect Skin: COMMON NORMALS: no rashes or lesions noted and turgor normal GENERAL SKIN EXAM: no rashes or lesions noted and turgor normal Course Vital Signs: Vital signs: Vital Signs Temperature 98 F 11/20/23 04:04 Pulse Rate 112 H 11/20/23 04:04 Respiratory Rate 20 H 11/20/23 04:04 Blood Pressure 163/92 11/20/23 04:04 Pulse Oximetry 98 11/20/23 04:04 [facility] - Dental/Oral Medical Decision Making Dental caries. No significant swelling or airway compromise. No evidence of Walt's angina. No other medical history per patient. She denies taking any medications although buspirone and citalopram are listed. She denies allergies and was prescribed penicillin and advised to follow-up with a dentist. No radiology studies performed this visit Discharge Plan Discharge Patient Disposition: Home Clinical Impression: Dental caries Condition: Stable Prescriptions: New penicillin V potassium 500 mg tablet 500 mg PO Q8H 10 Days Qty: 30 0RF No Action buspirone 5 mg tablet 5 mg PO TID PRN (Reason: anxiety) Qty: 90 1RF citalopram [Celexa] 10 mg tablet 10 mg PO DAILY Qty: 30 1RF Discharge Orders: Discharge ED (Routine); Ordered 11/20/23 Ordered By: Janice Lino Referrals: Felipe Ching MD [Primary Care Provider] - Patient Instructions: Opioid Safety, Pain Management Activity Restrictions/Additional Instructions: Follow up with a dentist as soon as possible for definitive treatment. 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
[2023-11-20 07:08] VITALS: BP 129/86; PULSE 81; O2SAT 98
== END 2023-11-20 06:45 | disposition home or self-care (01) ==
PROVIDERS: Emergency Provider Emergency Medicine; PCP Family Medicine Adult Medicine
DX: K02.9 Dental caries, unspecified (principal); Z72.0 Tobacco use
CPT/HCPCS: 99283

== ENCOUNTER 2024-03-20 05:59 | Emergency (ER) | payer SELFPAY ==
[2024-03-20 06:06] VITALS: BP 113/88; PULSE 99; RESP 18; TEMP 36.5; O2SAT 98; BMI 29.2
--- NOTE | 2024-03-20 06:19 | W.ED.EXTPRO ---
HPI - Extremity Problem General: Chief complaint: Extremity Problem,Nontraumatic Stated complaint: spot on leg Time Seen by Provider: 03/20/24 06:16 History of Present Illness: 38-year-old female presents emergency room noticed a red spot on the medial aspect of her left thigh distally. Mildly tender. No drainage. No other areas of rash noted. (And the triage note it says 50 cm that is a typo its 5 cm in diameter). Patient denies fever. Associated symptoms: Reports rash Related Data Previous Rx's Medication Instructions Recorded buspirone 5 mg tablet 5 mg PO TID PRN anxiety #90 tabs 12/29/22 citalopram 10 mg tablet (Celexa) 10 mg PO DAILY mental health #30 12/29/22 tabs sulfamethoxazole 800 1 tab PO BID 7 days #14 tabs 03/20/24 mg-trimethoprim 160 mg tablet (Bactrim DS) Allergies Allergy/AdvReac Type Severity Reaction Status Date / Time No Known Allergies Allergy Verified 03/20/24 06:11 Review of Systems Skin/Breast: Reports: rash, erythema and skin tenderness PFS ED PFSH: Medical History Lip tremor Abscess of right axilla FH: lupus erythematosus Smoker unmotivated to quit Whole body pain Joint pain in both hands Obesity (BMI 30-39.9) Weight gain, abnormal Mixed anxiety depressive disorder Surgical History No pertinent past surgical history Family History Father No problems noted. Mother Hypertension Hyperlipidemia Social History Smoking and tobacco/nicotine status: current every day tobacco/nicotine user Quit status (tobacco/nicotine): not considering quitting Second hand smoke exposure: No Alcohol intake: former Substance/Drug Use: current Substance/Drug use frequency: daily Physical Exam Skin: OTHER: Examination medial aspect of the distal thigh 5 cm round mildly reddened area not indurated no vesicles tender to touch Course Vital Signs: Vital signs: Vital Signs Temperature 97.7 F 03/20/24 06:06 Pulse Rate 59 L 03/20/24 06:26 Respiratory Rate 18 01/14/25 06:06 Blood Pressure 113/88 03/20/24 06:26 Pulse Oximetry 96 03/20/24 06:26 Oxygen Delivery Me thod Room Air 03/20/24 06:06 MDM - Extremity (Nontraumatic) Medical Decision Making Mild localized cellulitis. Started on Bactrim DS 1 p.o. twice daily. Follow-up with primary care as needed Medical Records I reviewed the patient's medical records. No radiology studies performed this visit Discharge Plan Discharge Patient Disposition: Home Clinical Impression: Cellulitis and abscess of left leg Condition: Stable Prescriptions: New sulfamethoxazole-trimethoprim [Bactrim DS] 800-160 mg tablet 1 tab PO BID 7 Days Qty: 14 0RF No Action buspirone 5 mg tablet 5 mg PO TID PRN (Reason: anxiety) Qty: 90 1RF citalopram [Celexa] 10 mg tablet 10 mg PO DAILY Qty: 30 1RF Discharge Orders: Discharge ED (Routine); Ordered 03/20/24 Ordered By: Reese Agrawal Referrals: Felipe Ching MD [Primary Care Provider] - Discharge Diet: Usual diet Discharge Activity: Resume usual activity Patient Instructions: Cellulitis (ED), Opioid Safety, Pain Management Activity Restrictions/Additional Instructions: Thank you for choosing [facility] for your healthcare needs today. It is very important that you follow up as instructed or that you return to the Emergency Department should you have concerns or if your condition changes or worsens in any way. You are seen in the emergency room with a complaint of a small reddened area on your inner aspect of your left leg. Appears to be a mild superficial cellulitis. 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
[2024-03-20 06:26] VITALS: BP 113/88; PULSE 59; O2SAT 96
== END 2024-03-20 06:29 | disposition home or self-care (01) ==
PROVIDERS: Emergency Provider Family Medicine; PCP Family Medicine Adult Medicine
DX: L03.116 Cellulitis of left lower limb (principal); L02.416 Cutaneous abscess of left lower limb; Z72.0 Tobacco use
CPT/HCPCS: 99283